=== PATIENT | male | born 1945 | race Asian ===

== ENCOUNTER 2019-05-20 12:57 | Emergency (ER) | payer OTHER ==
[~2019-05-20] VITALS: Ht 170.2 cm; Wt 68.0 kg
[~2019-05-20 12:57] MED LIST: EZET1TAB29 PO
[2019-05-20 13:34] VITALS: BP_SYST 151
--- NOTE | 2019-05-20 15:54 | NUR ---
JAN Liu at bedside examining patient.
--- NOTE | 2019-05-20 15:54 | NUR ---
Patient to ER bed H1 to gown for evaluation. Side rails up. Report given to IMER Gibbs.
--- NOTE | 2019-05-20 15:56 | NUR ---
Pt brought by family, A&Ox4, pt presents to ER with pain on R hand, R knee and LAC on bridge after mechanical fall , skin pink and warm, respirations even and unlabored, cap refill <3.
[2019-05-20] MEDS ORDERED: HYDROcodone/ACETAMIN 7.5-325 MG TAB PO ONE (16:00)
[2019-05-20] MEDS ORDERED: BACITRACIN 1 GM OINT TP ONE (16:00)
[2019-05-20] MEDS ORDERED: LIDOCAINE 1% 10 MG/ML, 20 ML MDV INJ ONE (16:00)
[2019-05-20 17:08] VITALS: BP_SYST 148
--- NOTE | 2019-05-20 17:08 | NUR ---
Patient given written and verbal discharge instructions and verbalizes understanding. ER MD discussed with patient the results and treatment provided. Patient in stable condition. ID arm band removed. Rx of NORCO & BACITRACIN given. Patient educated on pain management and to follow up with PMD. Pain Scale . Opportunity for questions provided and answered. Medication side effect fact sheet provided.
== END 2019-05-20 17:08 | disposition home or self-care (01) ==
LOC: SED 12:57
DX: S63.286A Dislocation of proximal interphalangeal joint of right little finger, initial encounter (principal); S02.2XXA Fracture of nasal bones, initial encounter for closed fracture; S80.211A Abrasion, right knee, initial encounter; M79.642 Pain in left hand; Z88.0 Allergy status to penicillin; Z88.1 Allergy status to other antibiotic agents; Z79.899 Other long term (current) drug therapy; W10.8XXA Fall (on) (from) other stairs and steps, initial encounter; Y93.89 Activity, other specified; Y92.89 Other specified places as the place of occurrence of the external cause; Y99.8 Other external cause status
CPT/HCPCS: 26770; 29505; 70450; 70486; 73080; 73130; 73140; 73564; 99284; J2001

== ENCOUNTER 2019-05-29 07:04 | Day surgery (SDC) | payer OTHER ==
[~2019-05-29] VITALS: Ht 170.2 cm; Wt 68.0 kg
[~2019-05-29 07:04] MED LIST changes: +OXYMETAZOLINE HCL 0.05% NASAL SPRAY NS ONE
[2019-05-29] MEDS ORDERED: OXYMETAZOLINE HCL 0.05% NASAL SPRAY NS ONE (07:35)
[2019-05-29] MEDS ORDERED: fentaNYL CITRATE/PF 100 MCG/2 ML AMP IVP PRN ×2 (10:15)
[2019-05-29] MEDS ORDERED: ONDANSETRON HCL 4 MG/2 ML VIAL IVP PRN (10:15)
[2019-05-29] MEDS ORDERED: ACETAMINOPHEN 650 MG/20.3 ML UDC PO PRN (11:00)
[2019-05-29] MEDS ORDERED: ONDANSETRON 4 MG ODT TAB PO PRN (11:00)
[2019-05-29] MEDS ORDERED: HYDROcodone/ACETAMIN 5-325 MG TAB (NORCO/ VICODIN) PO PRN (11:00)
[2019-05-29] MEDS ORDERED: fentaNYL CITRATE/PF 100 MCG/2 ML AMP ONE (11:13)
[2019-05-29 13:02] VITALS: BP_SYST 151
== END 2019-05-29 12:35 | disposition home or self-care (01) ==
LOC: SDS 07:04 → SMU 07:04 → SDS 12:35
PROVIDERS: ATTEND Otolaryngology
DX: S02.2XXA Fracture of nasal bones, initial encounter for closed fracture (principal); X58.XXXA Exposure to other specified factors, initial encounter; Y93.B9 Activity, other involving muscle strengthening exercises; Y92.89 Other specified places as the place of occurrence of the external cause; Y99.8 Other external cause status; Z88.0 Allergy status to penicillin; Z88.1 Allergy status to other antibiotic agents; Z88.2 Allergy status to sulfonamides; Z88.8 Allergy status to other drugs, medicaments and biological substances
CPT/HCPCS: 21320; 93005; J3010; J7120

== ENCOUNTER 2021-10-31 20:18 | Inpatient (IN) | payer OTHER ==
[~2021-10-31] VITALS: Ht 170.2 cm; Wt 72.6 kg
[~2021-10-31 20:18] MED LIST changes: -OXYMETAZOLINE HCL 0.05% NASAL SPRAY NS ONE
[2021-10-31 20:36] VITALS: BP_SYST 144
--- NOTE | 2021-10-31 20:43 | NUR ---
Arron ledesma in [facility] - 10/31/21 at 2240 by SDEDPR JAN Veronica at bedside examining patient.
--- NOTE | 2021-10-31 20:43 | NUR ---
ER examining patient in the tent.
[2021-10-31 21:07] LABS: BASOPHILS % (AUTO) 0.7 % (0.0-2.0); EOSINOPHILS % (AUTO) 0.3 % (0.0-4.0); HEMATOCRIT 42.5 % (36-54); HEMOGLOBIN 14.7 g/dL (14.0-18.0); LYMPHOCYTES # (AUTO) 2.5 K/uL (1.0-5.5); LYMPHOCYTES % (AUTO) 39.7 % (20.5-51.5); MEAN CORPUSCULAR HEMOGLOBIN 31 pg (27-31); MEAN CORPUSCULAR HGB CONC 35 % (32-36); MEAN CORPUSCULAR VOLUME 89 fL (79.0-98.0); MONOCYTES # (AUTO) 0.9 K/uL (0.0-1.0); MONOCYTES % (AUTO) 13.8 % (1.7-9.3); NEUTROPHILS # (AUTO) 2.8 K/uL (1.8-7.7); NEUTROPHILS % (AUTO) 45.5 % (40.0-70.0); PLATELET COUNT (AUTO) 177 K/uL (130-430); RED BLOOD CELL COUNT(AUTO) 4.79 MIL/uL (4.2-6.2); RED CELL DISTRIBUTION WIDTH 13.3 % (9.0-15.0); WHITE BLOOD COUNT (AUTO) 6.2 K/uL (4.8-10.8)
[2021-10-31 21:08] LABS: BILIRUBIN,URINE NEGATIVE (NEGATIVE); BLOOD, URINE NEGATIVE (NEGATIVE); CLARITY/URINE CLEAR (CLEAR); COLOR,URINE YELLOW (YELLOW); GLUCOSE,URINE NEGATIVE (NEGATIVE); KETONES,URINE TRACE (NEGATIVE); LEUKOCYTE ESTERASE ,URINE NEGATIVE (NEGATIVE); NITRITE, URINE NEGATIVE (NEGATIVE); PH,URINE 5.5 (5.0-8.0); PROTEIN URINE NEGATIVE (NEGATIVE); UROBILINOGEN,URINE 0.2 (0.2-1.0)
--- NOTE | 2021-10-31 21:15 | NUR ---
Patient to ER bed 06 to gown for evaluation. Side rails up.
[2021-10-31 21:17] LABS: ANION GAP 9 (5-15); CALCIUM 7.6 mg/dL (8.4-11.0); CHLORIDE 98 mmol/L (98-107); GLUCOSE 111 mg/dL (70-99); POTASSIUM 3.7 mmol/L (3.5-5.1); SODIUM SERUM 129 mmol/L (136-145); UREA NITROGEN, BLOOD 15 mg/dL (8-21)
[2021-10-31 21:23] LABS: ALANINE AMINOTRANSFERASE 8 U/L (12-78); ALBUMIN 3.4 g/dL (3.4-4.8); ASPARTATE AMINOTRANSFERASE 23 U/L (10-37); TOTAL BILIRUBIN 1.1 mg/dL (0.0-1.0)
[2021-10-31] MEDS ORDERED: cefTRIAXone 1 GM IVPB PREMIX 50 ML IV ONE (22:00)
--- NOTE | 2021-10-31 22:35 | NUR ---
Admit bed requested Patient will be admitted to care of . Admitted to MED SURG unit. Diagnosis R/O MENINGITIS Inpatient (Yes or No) YES Observation (Yes or No) NO Orientation concerns or request close to nursing station (Yes or No) NO Covid Status PENDING On vent or bipap NO Isolation requirements YES Needs a sitter NO From Home (Yes or if No enter name of facility) YES Requires Dialysis (Yes or No) NO Med Rec Completed (Yes of No) PENDING
[2021-10-31] MEDS ORDERED: MORPHINE 2 MG/ML INJ. SYRINGE IVP PRN (23:15)
[2021-10-31] MEDS ORDERED: ZOLPIDEM TARTRATE 5 MG TABLET PO PRN (23:15)
[2021-10-31] MEDS ORDERED: NACL 0.9% 1,000 ML IV SCH (23:15)
[2021-10-31] MEDS ORDERED: HYDROcodone/ACETAMIN 7.5-325 MG TAB PO PRN (23:15)
[2021-10-31] MEDS ORDERED: guaiFENesin/DEXTROMETHORPHAN 10 ML UDC PO PRN (23:15)
[2021-10-31] MEDS ORDERED: ONDANSETRON HCL 4 MG/2 ML VIAL IVP PRN (23:15)
[2021-10-31] MEDS ORDERED: ACETAMINOPHEN 500 MG TABLET PO PRN (23:15)
[2021-10-31] MEDS ORDERED: DOCUSATE SODIUM 100 MG/10 ML UDC PO PRN (23:15)
--- NOTE | 2021-10-31 23:50 | NUR ---
KULDIP GRIER DOING ULTRASOUND GUIDED IV.
[2021-11-01 00:06] LABS: FREE T4 (FREE THYROXINE) 0.8 ng/dl (0.8-1.5); PHOSPHORUS 3.3 mg/dL (2.7-4.5); THYROID STIMULATING HORMONE 0.77 uIu/mL (0.36-3.74)
[2021-11-01 00:38] LABS: INR 1.1 (0.80-1.20); PROTHROMBIN TIME 11.6 SECS (9.5-12.5)
--- NOTE | 2021-11-01 02:25 | NUR ---
Patient will be admitted to care of dr. Fox. Admitted to unit. Will go to room . Belongings list completed. Complete and up to date summary report printed. SBAR report to be given at bedside with opportunity for questions.
--- NOTE | 2021-11-01 02:36 | NUR ---
Admission Note Received patient from ER with diagnosis of rule out meningitis. Initial Plan of Care discussed-patient verbalized understanding. Oriented to room, call light, pain management and safety.
[2021-11-01 02:41] VITALS: BP_SYST 141
--- NOTE | 2021-11-01 06:23 | NUR ---
CLOSING NOTE Patient resting in bed. No s/s of acute distress noted. Breathing even and unlabored. IVF infusing well, IV site patent, no signs of infiltration or infection noted. All needs met throughout shift. Fall, safety, and isolation precautions maintained throughout shift. Will continue to monitor until patient care is endorsed to oncoming dayshift nurse.
[2021-11-01 07:28] LABS: BASOPHILS % (AUTO) 0.3 % (0.0-2.0); EOSINOPHILS % (AUTO) 0.1 % (0.0-4.0); HEMOGLOBIN 14.1 g/dL (14.0-18.0); LYMPHOCYTES # (AUTO) 1.3 K/uL (1.0-5.5); LYMPHOCYTES % (AUTO) 14.7 % (20.5-51.5); MEAN CORPUSCULAR HEMOGLOBIN 30 pg (27-31); MEAN CORPUSCULAR HGB CONC 34 % (32-36); MEAN CORPUSCULAR VOLUME 90 fL (79.0-98.0); MONOCYTES # (AUTO) 0.8 K/uL (0.0-1.0); MONOCYTES % (AUTO) 9.1 % (1.7-9.3); NEUTROPHILS # (AUTO) 6.6 K/uL (1.8-7.7); NEUTROPHILS % (AUTO) 75.8 % (40.0-70.0); PLATELET COUNT (AUTO) 172 K/uL (130-430); RED BLOOD CELL COUNT(AUTO) 4.66 MIL/uL (4.2-6.2); RED CELL DISTRIBUTION WIDTH 13.2 % (9.0-15.0); WHITE BLOOD COUNT (AUTO) 8.8 K/uL (4.8-10.8)
--- NOTE | 2021-11-01 07:31 | NUR ---
Received patient in bed resting comfortably, AAOX4. patient present calm and cooperative. No s/sx pain or discomfort. Respirations are non-labored. Skin is clean,warm and dry to touch. IV access is patent, dry and secure, no s/sx of redness or swelling observed. Bed is locked in lowest position, call light in reach. Nurse will continue care and monitor for changes in status.
[2021-11-01 07:55] LABS: ANION GAP 10 (5-15); CALCIUM 7.4 mg/dL (8.4-11.0); CHLORIDE 99 mmol/L (98-107); CREATININE 1.01 mg/dL (0.55-1.30); GLUCOSE 96 mg/dL (70-99); SODIUM SERUM 132 mmol/L (136-145); UREA NITROGEN, BLOOD 13 mg/dL (8-21)
[2021-11-01] MEDS ORDERED: PANTOPRAZOLE SODIUM 40 MG TAB PO SCH (09:00)
[2021-11-01] MEDS ORDERED: POTASSIUM CHLORIDE 20 MEQ TAB.PRT.SR PO PRN (09:00)
[2021-11-01 09:17] VITALS: BP_SYST 138
--- NOTE | 2021-11-01 11:26 | NUR ---
Patient spoke with Dana ONEIL, and express his desire to go home prior to treatment plan against medical advise. Patient and his educated on the risk factors and follow up with his PCP as soon as possible, and if symptoms worsen to return to the emergency room [facility]. Patient verbalizes understanding. IV access discontinued, no s/sx of redness nor swelling observed.Patient signed AMA document and discharged from care.
== END 2021-11-01 10:00 | disposition left against medical advice (07) | DRG 97 ==
LOC: SED 20:18 → SMU 22:30
PROVIDERS: ADMIT Family Medicine; ATTEND Family Medicine
DX: G03.9 Meningitis, unspecified (principal); G93.41 Metabolic encephalopathy; E87.1 Hypo-osmolality and hyponatremia; E78.5 Hyperlipidemia, unspecified; Z20.822 Contact with and (suspected) exposure to COVID-19; Z79.899 Other long term (current) drug therapy; Z88.0 Allergy status to penicillin; Z88.1 Allergy status to other antibiotic agents; Z88.8 Allergy status to other drugs, medicaments and biological substances
CPT/HCPCS: 36415; 70450-TC; 71045; 76376; 80048; 80053; 80061; 81003; 82150; 83036; 83605; 83690; 83735; 83880; 84100; 84439; 84443; 85025; 85610-TC; 85730-TC; 87040; 93005; J0696; J1956